=== PATIENT | male | born 1975 | race Caucasian/White ===

== ENCOUNTER 2019-08-30 06:42 | Outpatient (CLI) | payer OTHER ==
[2019-08-30 11:33] LABS: #Eosinphils 0.1 thou/uL (0.0-0.7); #Lymphocytes 1.4 thou/uL (1.20-3.40); #Monocytes 0.6 thou/uL (0.11-0.59); #Neutrophils 4.5 thou/uL (1.40-6.50); %Basophils 0.2 % (0.0-1.0); %Eosinophils 1.2 % (0.0-10.0); %Lymphocytes 20.9 % (21.0-51.0); %Monocytes 8.5 % (0.0-10.0); %Neutrophils 69.2 % (42.0-75.0); Hemoglobin 16.4 g/dL (14.0-18.0); Mean Corpuscular HGB CONC 33.4 g/dL (32.0-36.0); Mean Corpuscular Hemoglobin 31.1 pg (27.0-31.0); Mean Corpuscular Volume 93.4 fL (78.0-98.0); Mean Platelet Volume 7.4 fL (7.4-10.4); Platelet Count 207 thou/uL (130-400); RBC Distribution Width 11.6 % (11.5-14.5); Red Blood Cell (RBC) Count 5.26 mill/uL (4.70-6.10); White Blood Cell (WBC) Count 6.5 thou/uL (4.8-10.8)
[2019-08-30 12:10] LABS: Anion Gap 13 mmol/L (10-20); BUN (Urea Nitrogen) 15 mg/dL (8.9-20.6); Calc. Creatinine Clearance 0 mL/min (70-130); Calcium 9.1 mg/dL (7.8-10.44); Carbon Dioxide 25 mmol/L (22-29); Chloride 104 mmol/L (98-107); Estimated GFR-MDRD 65; Glucose 81 mg/dL (70-105); Potassium 4.7 mmol/L (3.5-5.1); Sodium 137 mmol/L (136-145)
== END 2019-08-30 06:43 | disposition home or self-care (01) ==
LOC: LABBT 06:42
PROVIDERS: ATTEND Surgery
DX: Z01.812 Encounter for preprocedural laboratory examination (principal); K40.90 Unilateral inguinal hernia, without obstruction or gangrene, not specified as recurrent
CPT/HCPCS: 80048; 85025

== ENCOUNTER 2019-09-06 07:38 | Day surgery (SDC) | payer OTHER ==
[2019-08-30 10:31] VITALS: BMI 35.9
[2019-09-06] MEDS ORDERED: Midazolam HCl 2 mg/2 ml Vial ONE (08:59)
[2019-09-06] MEDS ORDERED: Bupivacaine 0.25% HCL 30 ML VIAL ONE (09:09)
[2019-09-06] MEDS ORDERED: Fentanyl 100 MCG/2 ML VIAL ONE ×4 (09:23→12:09)
[2019-09-06] MEDS ORDERED: Glycopyrrolate 0.2 MG/ML 5 ML SYRINGE ONE (10:28)
[2019-09-06] MEDS ORDERED: Rocuronium Bromide 10 MG/ML (10ML VIAL) ONE (10:28)
[2019-09-06] MEDS ORDERED: Dexamethasone 20 MG/5 ML VIAL ONE (10:28)
[2019-09-06] MEDS ORDERED: Ondansetron PF 4 MG/2 ML Vial ONE (10:28)
[2019-09-06] MEDS ORDERED: Lidocaine 1% PF 5 ML VIAL ONE (10:28)
[2019-09-06] MEDS ORDERED: PROPOFOL 200 MG/20 ML VIAL ONE (10:28)
--- NOTE | 2019-09-10 15:09 | OP ---
DATE OF PROCEDURE: 09/06/2019 PREOPERATIVE DIAGNOSIS: Left inguinal hernia. POSTOPERATIVE DIAGNOSIS: Bilateral inguinal hernia. PROCEDURE PERFORMED: Da Cristian laparoscopic bilateral inguinal hernia repair with mesh, 3DMax large. ANESTHESIA: General. ESTIMATED BLOOD LOSS: Minimal. COMPLICATIONS: None. SPECIMEN: None. FINDINGS: Bilateral inguinal hernia. TECHNIQUE: The patient was taken to the operating room and laid supine on the operating table. After general anesthetic was obtained, Moore was placed, and the abdomen was shaved, prepped, and draped in a sterile fashion. An incision was made above the umbilicus, cautery dissected down to and score the fascia. Abdominal cavity was entered bluntly using a Ida clamp. The 11 mm robot balloon trocar was placed, and high-flow pneumoperitoneum was obtained. Left and right abdominal 8 mm robot trocars were placed. All ports were docked to the robot. The peritoneum was taken down in the bilateral groin revealing bilateral inguinal hernias. The preperitoneal space was dissected all the way to pubic tubercle medially, anterior superior iliac crest laterally. The shelving edge of inguinal ligament was fully exposed. The 3DMax large mesh was brought into the abdomen and placed in through the 11 mm port. The bilateral M-labeled medial aspect was placed over the pubic tubercles medially, and the meshes were laid out laterally to cover the femoral indirect and direct areas. The mesh was sewn via Vicryl to the pubic tubercle medially and to the posterior fascia laterally. The peritoneum was reapproximated using running 3-0 Stratafix. All port sites were infiltrated using local anesthetic. All ports were removed under camera visualization. Pneumoperitoneum was let down. PDS was used to close the fascial defect above the umbilicus. All incisions were irrigated and closed using 4-0 Monocryl and Dermabond. The patient was sent to Recovery in stable condition. All instrument counts, needle counts, and lap counts are correct. Job ID: [id number]
== END 2019-09-06 14:45 | disposition home or self-care (01) ==
LOC: SDC 07:38
PROVIDERS: ATTEND Surgery
PROC: 0YUA4JZ Supplement Bilateral Inguinal Region with Synthetic Substitute, Percutaneous Endoscopic Approach (ICD-10-PCS; principal; 2019-09-06)
DX: K40.20 Bilateral inguinal hernia, without obstruction or gangrene, not specified as recurrent (principal); F41.9 Anxiety disorder, unspecified; F32.9 Major depressive disorder, single episode, unspecified; F17.290 Nicotine dependence, other tobacco product, uncomplicated; K21.9 Gastro-esophageal reflux disease without esophagitis; Z79.899 Other long term (current) drug therapy; Z88.8 Allergy status to other drugs, medicaments and biological substances; Z98.84 Bariatric surgery status
CPT/HCPCS: C1781; J0690; J1100; J2001; J2250; J2405; J2704; J3010; S0020

== ENCOUNTER 2021-03-10 09:15 | Emergency (ER) | payer BC ==
[2021-03-10] MEDS ORDERED: Ketorolac Tromethamine 30 MG/ML VIAL ONE (10:23)
[2021-03-10] MEDS ORDERED: Acetaminophen 500 MG TAB ONE (10:23)
== END 2021-03-10 12:49 | disposition home or self-care (01) ==
LOC: ERS 09:15
DX: M48.56XA Collapsed vertebra, not elsewhere classified, lumbar region, initial encounter for fracture (principal); K21.9 Gastro-esophageal reflux disease without esophagitis; Z79.899 Other long term (current) drug therapy
CPT/HCPCS: 72100; 96372; J1885

== ENCOUNTER 2021-03-12 06:45 | Day surgery (SDC) | payer BC ==
[2021-03-11 12:28] VITALS: BMI 46.3
[2021-03-12 08:05] VITALS: BP 142/99; TEMP 98.4
== END 2021-03-12 09:55 | disposition home or self-care (01) ==
LOC: RAD 06:45
PROVIDERS: ATTEND Neurological Surgery
PROC: B02B1ZZ Computerized Tomography (CT Scan) of Spinal Cord using Low Osmolar Contrast (ICD-10-PCS; principal; 2021-03-12)
DX: M54.16 Radiculopathy, lumbar region (principal); M48.061 Spinal stenosis, lumbar region without neurogenic claudication; K21.9 Gastro-esophageal reflux disease without esophagitis; G25.0 Essential tremor; Z79.899 Other long term (current) drug therapy; Z88.8 Allergy status to other drugs, medicaments and biological substances
CPT/HCPCS: 62304; 72132

== ENCOUNTER 2022-01-15 08:00 | Outpatient (CLI) | payer BC | END 2022-01-15 08:01 | disposition home or self-care (01) | LOC: NM 08:00 | PROVIDERS: ATTEND Physician Assistant | DX: R25.1 Tremor, unspecified (principal); G20 Parkinson's disease | CPT/HCPCS: 78803; A9584 ==

== ENCOUNTER 2022-03-09 14:55 | Outpatient (CLI) | payer BC | END 2022-03-09 14:56 | disposition home or self-care (01) | LOC: BICMRI 14:55 | PROVIDERS: ATTEND Physician Assistant Medical | DX: G20 Parkinson's disease (principal) | CPT/HCPCS: 70551 ==